=== PATIENT | female | born 1970 | race Hispanic/Latino ===

== ENCOUNTER → 2017-01-31 | Outpatient (CLI) | payer OTHER ==
--- NOTE | 2017-02-02 09:46 | Diagnostic Imaging Report ---
EXAMINATION: Bilateral screening mammogram 2D views with tomosynthesis. The current study was also evaluated with a Computer Aided Detection (CAD) system. INDICATION: Screening. PERSONAL HISTORY: No current complaints stated on the questionnaire. COMPARISON: 12/17/2015. FINDINGS: The breasts are composed of scattered fibroglandular densities. There is an area of architectural distortion in the outer aspect of the left breast which appears more prominent compared to the prior exam with no definitive underlying mass seen. No suspicious calcifications. The right breast demonstrates no change. IMPRESSION: Focal compression views and ultrasound evaluation for outer left breast architectural distortion is recommended. ACR BI-RADS Category 0: Incomplete. (Needs additional imaging evaluation). Result letter will be mailed to the patient. Note: At least 10% of breast cancer is not imaged by mammography. Dictated by: Dictated on workstation # [id number]
== END ==
LOC: RAD 13:56
PROVIDERS: ATTEND Nurse Practitioner Community Health
DX: Z12.31 Encounter for screening mammogram for malignant neoplasm of breast (principal)
CPT/HCPCS: 77067

== ENCOUNTER → 2017-02-11 | Outpatient (CLI) | payer OTHER ==
--- NOTE | 2017-02-11 20:53 | Diagnostic Imaging Report ---
Left breast diagnostic mammogram. The current study was also evaluated with a Computer Aided Detection (CAD) system. INDICATION: Asymmetries in the outer and upper aspects of the left breast. COMPARISON: 01/31/2017. FINDINGS: Focal compression views of asymmetries in the upper and outer aspects of the left breast demonstrate no definitive underlying lesion. IMPRESSION: Compression views demonstrate no definitive underlying lesion. Ultrasound evaluation pending. ACR BI-RADS Category 0: Incomplete. (Needs additional imaging evaluation). Result letter will be mailed to the patient. Note: At least 10% of breast cancer is not imaged by mammography. Dictated by: Dictated on workstation # [id number]
--- NOTE | 2017-02-11 20:58 | Diagnostic Imaging Report ---
EXAMINATION: Left breast ultrasound. INDICATION: Asymmetries in the upper and outer aspects of the left breast. FINDINGS: The four quadrants and retroareolar region of the left breast are scanned with no underlying abnormality seen. IMPRESSION: Negative study. Asymmetries on diagnostic mammography appear to be related to summation artifact of the parenchyma. Annual screening mammogram is recommended. ACR BI-RADS Category 1: Negative. Dictated by: Dictated on workstation # [id number]
== END ==
LOC: RAD 08:06
PROVIDERS: ATTEND Nurse Practitioner Community Health
DX: N64.89 Other specified disorders of breast (principal)
CPT/HCPCS: 76641

== ENCOUNTER → 2018-02-13 | Outpatient (CLI) | payer OTHER ==
--- NOTE | 2018-02-13 13:58 | Diagnostic Imaging Report ---
Indication: Routine screening. Comparison is made with prior mammogram from 01/31/2017 and 12/17/2015. 2-D and 3-D bilateral screening mammography was performed with CAD. Both breasts are heterogeneously dense, limiting the sensitivity of mammography. The parenchymal pattern appears to be stable. No dominant mass or malignant appearing microcalcifications are seen. Axillae are unremarkable. Impression: BI-RADS category one No mammographic features suspicious for malignancy are identified. ACR BI-RADS Category 1: Negative. Result letter will be mailed to the patient. Note: At least 10% of breast cancer is not imaged by mammography. Dictated by: Dictated on workstation # [id number]
== END ==
LOC: RAD 11:18
PROVIDERS: ATTEND Nurse Practitioner Community Health
DX: Z12.31 Encounter for screening mammogram for malignant neoplasm of breast (principal)
CPT/HCPCS: 77067

== ENCOUNTER 2022-06-02 05:33 | Outpatient (CLI) | payer OTHER ==
[~2022-06-02] VITALS: Ht 165.1 cm; Wt 70.8 kg
[2022-06-03] MEDS ORDERED: SUMA5SPR6 NS (10:13)
== END 2022-06-03 10:17 | disposition home or self-care (01) ==
LOC: PREOP 05:33
PROVIDERS: ATTEND Surgery
DX: Z01.818 Encounter for other preprocedural examination (principal)

== ENCOUNTER 2022-06-10 11:36 | Day surgery (SDC) | payer OTHER ==
[~2022-06-10] VITALS: Ht 165.1 cm; Wt 70.8 kg
[2022-06-10] VITALS (7 sets, daily range): BP systolic 84–124; BP diastolic 47–79
[~2022-06-10 11:36] MED LIST: SUMA5SPR6 NS
[2022-06-10] MEDS ORDERED: LACTATED RINGERS 1,000 ML IV ONE (12:08)
[2022-06-10] MEDS ORDERED: LACTATED RINGERS 1,000 ML IV STA (12:20)
[2022-06-10] MEDS ORDERED: HURRICAINE EXT TUBE (BENZOCAINE) XX PRN (12:30)
[2022-06-10] MEDS ORDERED: PROPOFOL INJECTION 50 ML IV ONE (13:08)
[2022-06-10] MEDS ORDERED: MIDAZOLAM 2 MG/2 ML (VERSED) VIAL ONE (13:08)
--- NOTE | 2022-06-10 13:21 | Progress Note-Pre Operative ---
Pre-Operative Progress Note Date H&P Reviewed: Jun 10, 2022 Time H&P Reviewed: 13:05 History & Physical: H&P Reviewed, Patient Examed, No changes noted Pre-Operative Diagnosis: abd pain, screening colonoscopy PERNELL LIM DO Jun 10, 2022 13:21
--- NOTE | 2022-06-10 13:47 | Progress Note-Post Operative ---
Post-Operative Progess Note Surgeon (s)/Skates Operator (s) Surgeon PERNELL LIM DO Skates Operator: na Pre-Operative Diagnosis abd pain, screening colonoscopy Post-Operative Diagnosis Gastritis Normal Colon Procedure & Operative Findings Date of Procedure 06/10/22 Procedure Performed/Findings EGD with biopsies Colonoscopy Anesthesia Type per HEAD TENNIS COACH Estimated Blood Loss Estimated blood loss (mL): none Specimens/Packing Specimens Removed Antrum x 1 GE junction x 1 PERNELL LIM DO Jun 10, 2022 13:47
[2022-06-10] MEDS ORDERED: PANT40TA2 PO (13:48)
--- NOTE | 2022-06-10 13:48 | Discharge Inst-Simple/Standard ---
Discharge Inst-Standard Discharge Medications New, Converted or Re-Newed RX: Transmitted to Pharmacy Patient Instructions/Follow Up Plan of Care/Instructions/FU: 2 weeks Deidre Activity as Tolerated: Yes Discharge Diet: No Restrictions PERNELL LIM DO Jun 10, 2022 13:48
--- NOTE | 2022-06-10 13:52 | Anesthesia-General Post-Op ---
MAC Patient Condition Mental Status/LOC: Same as Preop Cardiovascular: Satisfactory Nausea/Vomiting: Absent Respiratory: Satisfactory Pain: Controlled Complications: Absent Post Op Complications Complications None Follow Up Care/Instructions Patient Instructions None needed. Anesthesiology Discharge Order Discharge Order Patient is doing well, no complaints, stable vital signs, no apparent adverse anesthesia problems. No complications reported per nursing. MAXIME COOPER CRNA Jun 10, 2022 13:52
--- NOTE | 2022-06-10 16:41 | OPERATIVE REPORT ---
DATE OF SERVICE: 06/10/2022 PREOPERATIVE DIAGNOSIS: Abdominal pain, screening colonoscopy. POSTOPERATIVE DIAGNOSIS: Antral gastritis, normal colon. PROCEDURES: EGD with biopsy, colonoscopy. SURGEON: Pernell Jiang DO ANESTHESIA: Per RESIDENT IN DIAGNOSTIC RADIOLOGY. ESTIMATED BLOOD LOSS: None. COMPLICATIONS: None. INDICATIONS: The patient is a 51-year-old female with abdominal pain primarily in the upper abdomen. She also was in need of a screening colonoscopy. She understands risks and benefits of procedures and wishes to proceed. Consent was signed in chart. DESCRIPTION OF PROCEDURE: The patient was taken to endoscopy suite, placed in left lateral recumbent position. Timeout was performed. Scope was inserted in the mouth, down the esophagus, stomach, into the duodenum without difficulty. No polyps, masses or ulcerations within the duodenum. Scope was then slowly retracted back in the stomach where it was further insufflated. Antral gastritis present. Biopsy of the antrum was obtained. Scope was retroflexed noting no other pathology. Scope was returned to its normal position, slowly withdrawn until distal esophagus. Biopsy of GE junction was obtained. Scope was then slowly retracted back. No polyps, masses or ulcerations. Digital rectal exam was performed. No palpable polyps, masses or ulcerations. Scope was inserted in the rectum and advanced all the way to the cecum with minimal difficulty. Prep was adequate. No polyps, masses or ulcerations in the cecum. The terminal ileum was intubated with a normal appearance, scope was continuously retracted back. No polyps, masses or ulcerations within the ascending, transverse, descending, sigmoid colon. Once in the rectum, scope was retroflexed, noting no other pathology. Scope was returned to its normal position, slowly withdrawn until completely removed. The patient tolerated the procedure well without complications, taken to recovery room in stable condition. RECOMMENDATIONS: The patient will need repeat colonoscopy in 10 years. Any issues before that, be seen at that time. If the patient does have a family history of colon cancer, she will need repeat colonoscopy in 5 years. We will also start her on Protonix 40 mg daily to see if she has any improvement of her symptoms. She will also follow up on biopsies in 2 weeks. Job ID: [id number] DocumentID: [id number] Dictated Date: 06/10/2022 13:49:36 Tumor Registrar Date: 06/10/2022 16:39:00 Dictated By: PERNELL JIANG DO
== END 2022-06-10 14:45 | disposition home or self-care (01) ==
LOC: ENDO 11:36
PROVIDERS: ATTEND Surgery
DX: Z12.11 Encounter for screening for malignant neoplasm of colon (principal); K29.70 Gastritis, unspecified, without bleeding; K20.90 Esophagitis, unspecified without bleeding; E66.9 Obesity, unspecified; Z28.310 Unvaccinated for COVID-19; Z68.25 Body mass index [BMI] 25.0-25.9, adult
CPT/HCPCS: 84703

== ENCOUNTER → 2022-07-22 | Outpatient (CLI) | payer OTHER ==
[~2022-07-22] MED LIST changes: +HOLD METFORMIN - RECEIVED CONTRAST 20 ML VIAL IV SCH; +IOHEXOL 350 MG/ML 100 ML (OMNIPAQUE 350) VIAL IV ONE; +NS 100 ML (IVPB) BAG IV ONE; +PANT40TA2 PO
--- NOTE | 2022-07-22 10:05 | Diagnostic Imaging Report ---
PROCEDURE: CT abdomen and pelvis with contrast. TECHNIQUE: Multiple contiguous axial images were obtained through the abdomen and pelvis after administration of intravenous contrast. Auto Exposure Controls were utilized during the CT exam to meet ALARA standards for radiation dose reduction. All CT scans use one or more of the following dose optimizing techniques: automated exposure control, MA and/or KvP adjustment based on patient size and exam type or iterative reconstruction. INDICATION: Right upper quadrant pain. Comparison is made with prior CT from 12/25/2015. Lung bases are clear. Liver does show some mild generalized low attenuation suggestive of hepatic steatosis. No discrete liver mass is detected. Gallbladder surgically absent. No biliary ductal dilatation is identified. Pancreas and spleen are unremarkable. No adrenal mass is detected. Kidneys are unremarkable. Aorta is nonaneurysmal. Bowel loops are normal caliber. There is no obstruction. Uterus and bladder are unremarkable. There is a left adnexal cyst measuring 2.9 cm. No free fluid is identified. No inflammatory changes are seen. IMPRESSION: Left adnexal cyst. No other significant abnormality is detected. Dictated by: Dictated on workstation # [id number]
== END ==
LOC: MERGE 07:45 → RAD 07:54
PROVIDERS: ATTEND Surgery
DX: N83.8 Other noninflammatory disorders of ovary, fallopian tube and broad ligament (principal); R10.9 Unspecified abdominal pain
CPT/HCPCS: 74177

== ENCOUNTER → 2022-12-15 | Outpatient (CLI) | payer OTHER ==
[~2022-12-15] MED LIST changes: -HOLD METFORMIN - RECEIVED CONTRAST 20 ML VIAL IV SCH; -IOHEXOL 350 MG/ML 100 ML (OMNIPAQUE 350) VIAL IV ONE; -NS 100 ML (IVPB) BAG IV ONE
[2022-12-15 16:17] LABS: BASOPHILS % (AUTO) 0 % (0-10); EOSINOPHILS # (AUTO) 0.1 10^3/uL (0.0-0.3); EOSINOPHILS % (AUTO) 2 % (0-10); HEMATOCRIT 41 % (35-52); HEMOGLOBIN 13.4 g/dL (11.5-16.0); LYMPHOCYTES # (AUTO) 1.8 10^3/uL (1.0-4.0); LYMPHOCYTES % (AUTO) 30 % (12-44); MEAN CORPUSCULAR HEMOGLOBIN 29 pg (25-34); MEAN CORPUSCULAR HGB CONC 33 g/dL (32-36); MEAN CORPUSCULAR VOLUME 88 fL (80-99); MEAN PLATELET VOLUME 10.3 fL (9.0-12.2); MONOCYTES # (AUTO) 0.6 10^3/uL (0.0-1.0); MONOCYTES % (AUTO) 9 % (0-12); NEUTROPHILS # (AUTO) 3.5 10^3/uL (1.8-7.8); NEUTROPHILS % (AUTO) 58 % (42-75); PLATELET COUNT 244 10^3/uL (130-400); WHITE BLOOD COUNT 6.1 10^3/uL (4.3-11.0)
[2022-12-15 16:41] LABS: ALBUMIN 4.6 GM/DL (3.2-4.5); CHLORIDE 106 MMOL/L (98-107); ERYTHROCYTE SEDIMENTATION RATE 16 MM/HR (0-30); POTASSIUM 4.1 MMOL/L (3.6-5.0); SODIUM 140 MMOL/L (135-145)
[2022-12-15 16:42] LABS: CALCIUM 9.4 MG/DL (8.5-10.1)
[2022-12-15 16:44] LABS: GLUCOSE 93 MG/DL (70-105); TOTAL PROTEIN 8.1 GM/DL (6.4-8.2)
[2022-12-15 16:45] LABS: CARBON DIOXIDE 24 MMOL/L (21-32)
[2022-12-15 16:46] LABS: BILIRUBIN,TOTAL 0.3 MG/DL (0.1-1.0)
[2022-12-15 16:47] LABS: ALKALINE PHOSPHATASE 81 U/L (40-136)
[2022-12-15 16:48] LABS: CREATININE SERUM 0.88 MG/DL (0.60-1.30); GFR ESTIMATED 80
[2022-12-15 16:49] LABS: BUN/CREATININE RATIO 15
[2022-12-15 16:50] LABS: ALANINE AMINOTRANSFERASE 18 U/L (0-55)
== END ==
LOC: LAB 15:59
PROVIDERS: ATTEND Surgery
DX: G89.29 Other chronic pain (principal)
CPT/HCPCS: 36415; 80053; 85025; 85652; 86141; 86431